=== PATIENT | male | born 1975 | race Caucasian/White ===

== ENCOUNTER 2021-07-21 18:35 | Emergency (ER) | payer OTHER ==
[2021-07-21 21:59] LABS: BASOPHIL 0.2 % (0-2); EOSINOPHIL 1.1 % (0-5); HCT 43.5 % (42.0-52.0); HGB 14.2 g/dl (13.2-18.0); LYMPHOCYTE 37.3 % (15-48); MCH 28.4 pg (25.0-31.0); MCHC 32.6 g/dL (32.0-36.0); MPV 9.7 fL (6.0-9.5); NEUTROPHIL 54.3 % (41-80); NRBC 0; PLT 237 K/uL (150-400); RDW 12.8 % (11.5-14.0); WBC 8.5 K/uL (4.0-10.5)
[2021-07-21] MEDS ORDERED: ATARAX25 MG PO (22:09)
[2021-07-21 22:17] LABS: BILIRUBIN - TOTAL 0.3 mg/dL (0.2-1.0); BUN/CREAT RATIO (CALC) 9.9 RATIO; CREATININE 1.11 mg/dL (0.67-1.17); GLOBULIN (CALCULATION) 2.9 g/dL; POTASSIUM 3.7 mmol/L (3.5-5.1); TOTAL PROTEIN 6.9 g/dL (6.4-8.2)
== END 2021-07-21 22:50 | disposition home or self-care (01) ==
LOC: FER 18:35
PROVIDERS: Emergency Medicine
DX: L42 Pityriasis rosea (principal); I10 Essential (primary) hypertension; Z79.899 Other long term (current) drug therapy
CPT/HCPCS: 36415; 80053; 84145; 85025; 99283